=== PATIENT | male | born 1965 | race Caucasian/White ===

== ENCOUNTER 2021-10-25 14:06 | Outpatient (CLI) | payer OTHER, SELFPAY ==
--- NOTE | 2021-10-25 14:45 | CRLHL7_ITS ---
For Patients: As a result of the Century Cures Act, medical imaging exams and procedure reports are released immediately into your electronic medical record. You may view this report before your referring provider. If you have questions, please contact your health care provider. ULTRASOUND LOWER EXTREMITY VENOUS INSUFFICIENCY BILATERAL CLINICAL HISTORY: Bilateral lower extremity varicose veins, right greater than left. COMPARISON: None. TECHNIQUE: The lower extremity veins were examined with lewis-scale ultrasound, color-flow and Doppler spectral analysis. Compressibility of the veins by transducer pressure was used to evaluate the presence or absence of DVT/SVT at sites per exam specific protocol. Assessment of venous competence was performed by Doppler spectral analysis and was performed and documented at exam specific sites in an upright position for venous insufficiency studies. FINDINGS: Right lower extremity: There is no evidence of DVT. The deep venous system is compressible with augmentation of flow post-compression. Phasic flow is identified. Deep venous incompetence is noted in the distal femoral vein (reflux duration 2.1 seconds), in the popliteal vein (reflux duration 4.3 cm), and in the posterior tibial veins (reflux duration 3.4 seconds and 2.7 seconds, respectively). The greater and small saphenous veins are patent and competent. An incompetent perforating vein is noted in the calf (reflux duration 4 seconds, 2 mm). Left lower extremity: There is no evidence of DVT. The deep venous system is compressible with augmentation of flow post compression. Phasic flow is identified. Deep venous incompetence is noted in the popliteal vein (reflux duration 4.2 seconds). The greater and small saphenous veins are patent and competent. IMPRESSION: 1. No evidence of DVT in the bilateral lower extremities. Deep venous incompetence in the right distal femoral vein, popliteal vein and posterior tibial veins, as well as within the left popliteal vein. 2. Incompetent perforating vein in the right calf. Otherwise, no evidence of superficial venous incompetence in the bilateral lower extremities. Darian De Santiago M.D. [email or web address] Transcribed: 11:16 am DW/Dictated by: Darian De Santiago MD @ 10/26/2021 9:21:00 AM (Electronically Signed)
== END 2021-10-25 14:07 | disposition home or self-care (01) ==
LOC: US 14:10
PROVIDERS: PCP Surgery Vascular Surgery; Visit Provider Surgery Vascular Surgery
DX: I83.93 Asymptomatic varicose veins of bilateral lower extremities (principal)
CPT/HCPCS: 93970